=== PATIENT | female | born 1970 | race Caucasian/White ===

== ENCOUNTER → 2017-06-19 | Outpatient (CLI) | payer OTHER ==
[~2017-06-19] MED LIST: ALEVE220 MG PO; CELEBREX 200 M200 M1 PO; ESTROGEN CREAM; HYDROCODONE-AP1 EAC6 PO; IBUPROFEN 200200 M1 PO; IMITREX 25 MG T25 M1 PO; LAMICTAL100 MG PO; ONDANSETRON HCL4 M2 PO; SEROQUEL 25 MG25 M1 PO; XANAX 0.25 MG0.25 MG PO
--- NOTE | 2017-06-21 08:15 | PAINCON ---
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 She has done well with occasional epidural injections, last injection was greater than 4 months ago. I think she has had 3 injections total of 2017. She is seen for the first time in 2018 today. She notes last injection has helped with back and right leg pain. Today, she is standing as a position of comfort. She notes sitting causes significant exacerbation of right sciatic type pain. PHYSICAL EXAMINATION: Shows 5 feet 4 inches, 120 pounds female, BMI is 20 kilograms per meter squared. Blood pressure 120/78, Pulse=50 respirations 16. Modestly antalgic gait. Grossly positive straight leg raise on the right with slight decreased right hip flexion and lower plantar flexion strength. Reviewed diagnostic study, fairly dated MRI from 2011. The patient denies myelopathic symptoms, bowel or bladder continence changes. ASSESSMENT: Symptomatic lumbar radiculopathy, clinical exam and history. RECOMMENDATIONS: 1. Renew hydrocodone 5/325, dispense 60 tablets. We will renew Zofran ODT, which the patient uses in conjunction with sumatriptan 25 mg for her headaches. She states these are quite efficacious. She does not require renewal of the sumatriptan. Repeat epidural injection today at L5-S1. If this does not afford adequate relief, we will need to get another MRI of the lumbar spine. Given prior history and current physical exam, I suspect that this should be efficacious. 2. Lumbar epidural injection under fluoroscopy at L5-S1. PROCEDURE NOTE: After both written and informed consent to include risk of spinal cord damage, increased pain, weakness and dural puncture, the patient was taken to the fluoroscopy suite, placed in the prone position. After sterile prep and drape, a skin wheal with lidocaine was raised. A 22-gauge epidural Tuohy needle was inserted in the midline at L5-S1 with good loss to resistance. Negative aspiration for cerebrospinal fluid or blood was noted. Then 1 mL of Omnipaque under biplanar fluoroscopy showed good spread within the epidural space. This was followed with 80 mg of triamcinolone plus 1 mL of 1.5% preservative-free Xylocaine, 0.5 mL Xylocaine [place] [address] PAIN MANAGEMENT CONSULTATION Name: SOHAM GREY Room: [facility] Liriano#: [id number] Admission: 06/19/17 Attend Phys: Urban Renteria Discharge: Date of : 74 Report #: [id number] needle; it was removed. The patient was monitored for an appropriate period of time and discharged in good and stable condition. <ELECTRONICALLY SIGNED> By: Luciano Will DO 06/21/17 0815 0800 [id number] Centerraquel Will DO /nt
== END | disposition home or self-care (01) ==
LOC: M.PC 02:03
DX: M54.16 Radiculopathy, lumbar region (principal); G89.29 Other chronic pain; Z79.891 Long term (current) use of opiate analgesic; Z98.890 Other specified postprocedural states

== ENCOUNTER → 2017-07-10 | Outpatient (CLI) | payer OTHER ==
--- NOTE | 2017-07-11 08:24 | PAINCON ---
[address] [address] PAIN MANAGEMENT CONSULTATION Name: SOHAM GREY Room: [facility] Heri#: [id number] Admission: 07/10/17 Attend Phys: Urban Renteria Discharge: Date of : 74 Report #: [id number] THIS REPORT FOR: //name// CC: Physician staff Rubens Will The patient is a very pleasant 46-year-old female being treated for lumbar radiculopathy, component of SI joint dysfunction. She was given epidural injection at last visit with incremental improvement of baseline pain, still has ongoing pain, low back and right leg. The patient has done well with occasional epidural injections, initially treated in 11/2014. She had a single injection in 2014 and two lumbar epidural injections in 2015. She had a lumbar epidural injection in September, December and 03/2017. She had a single injection on 06/19/2017. While this afforded incremental relief, she still has some ongoing right radicular pain. PHYSICAL EXAMINATION: Shows pleasant 46-year-old female, blood pressure 114/68, pulse 69 and respirations 16. BMI is 21.8 kilograms per meter squared. Rises from chair without using the armrest. Gait is tandem. Lumbar flexion is good. Tenderness over the right low back radiating in L4 pattern on the right side. Modestly positive straight leg raise on the right with resistance to right hip flexion reproducing L4 radicular pain pattern. I reviewed the patient's diagnostic findings including MRI of the lumbar spine dated 05/19/2012, she had had a left-sided broad-based disk at L4-L5 with anterolisthesis at this level. Over time, symptoms have become more right-sided. No new imaging indicated at this point, but we did elect to repeat epidural injection under fluoroscopy today. We will have the patient follow up in 2-3 weeks for reevaluation. If symptoms continue, we will need an MRI at that time. If, however, she has good resolution of symptoms, we will simply see as needed. ASSESSMENT: Symptomatic lumbar radiculopathy. PROCEDURE: Lumbar epidural injection under fluoroscopy. PROCEDURE NOTE: After both written and informed consent to include risk of spinal cord damage, increased pain, weakness and dural puncture, the patient was taken to the fluoroscopy suite, placed in the prone position. After sterile prep and drape, a skin wheal with lidocaine was raised. A 22-gauge epidural Tuohy needle was inserted in the midline at L4-L5 with good loss to resistance. Negative aspiration for cerebrospinal fluid or blood was noted. Then 1 mL of Omnipaque under biplanar fluoroscopy showed good spread within the epidural space. This was followed with 80 mg of triamcinolone plus 1 mL of 1.5% preservative-free Xylocaine, 0.5 mL Xylocaine was [place] [address] PAIN MANAGEMENT CONSULTATION Name: SOHAM GREY Room: [facility] Liriano#: [id number] Admission: 07/10/17 Attend Phys: Urban Renteria Discharge: Date of : 74 Report #: [id number] needle; it was removed. The patient was monitored for an appropriate period of time and discharged in good and stable condition. <ELECTRONICALLY SIGNED> By: Luciano Will DO 07/11/17 0824 1414 [id number] Will DO /nt
== END | disposition home or self-care (01) ==
LOC: M.PC 07-03 01:29
DX: M54.16 Radiculopathy, lumbar region (principal); G89.29 Other chronic pain; M53.3 Sacrococcygeal disorders, not elsewhere classified; Z79.891 Long term (current) use of opiate analgesic

== ENCOUNTER → 2017-09-25 | Outpatient (CLI) | payer OTHER ==
--- NOTE | 2017-09-26 06:52 | PAINCON ---
[address] [address] PAIN MANAGEMENT CONSULTATION Name: SOHAM GREY Room: [facility] Liriano#: [id number] Admission: 09/25/17 Attend Phys: Urban Renteria Discharge: Date of : 74 Report #: [id number] THIS REPORT FOR: //name// CC: Rubens Will DATE OF SERVICE: 09/25/2017 The patient is a very pleasant 47-year-old female being treated for lumbar radiculopathy. She has had epidural injections with dwindling efficacy. Ordered an MRI of the lumbar spine. We reviewed that today. She has ongoing pain, right posterior leg down to the foot. PHYSICAL EXAM: Positive straight leg raise on the right, chronic pain have been on the left side. Reviewed the MRI from 08/05/2017 L4-L5, does note a left paracentral disk with a horizontal tear. Primary pain in the right leg, correlates with L5-S1 broad-based right lateral recess disk traversing the right S1 nerve root. ASSESSMENT: Symptomatic lumbar radiculopathy by clinical exam and history. RECOMMENDATION: Repeat epidural injection under fluoroscopy today, but we will lower the level to L5-S1 on the right. The patient is given contact information for Dr. Dontae Hicks for further evaluation if this does not afford adequate relief. PROCEDURE: Lumbar epidural injection under fluoroscopy. PROCEDURE NOTE: After both written and informed consent to include risk of spinal cord damage, increased pain, weakness and dural puncture, the patient was taken to the fluoroscopy suite, placed in the prone position. After sterile prep and drape, a skin wheal with lidocaine was raised. A 22-gauge epidural Tuohy needle was inserted in the midline at L5-S1 with good loss to resistance. Negative aspiration for cerebrospinal fluid or blood was noted. Then 1 mL of Omnipaque under biplanar fluoroscopy showed good spread within the epidural space. This was followed with 80 mg of triamcinolone plus 1 mL of 1.5% preservative-free Xylocaine, 0.5 mL Xylocaine was then injected to flush the needle; it was removed. The patient was monitored for an appropriate period of time and discharged in good and stable condition. <ELECTRONICALLY SIGNED> By: Luciano Will DO 09/26/17 0652 [id number] Will DO /nt
== END | disposition home or self-care (01) ==
LOC: M.PC 08-14 03:40
DX: M54.16 Radiculopathy, lumbar region (principal); G89.29 Other chronic pain; Z79.891 Long term (current) use of opiate analgesic; Z98.890 Other specified postprocedural states

== ENCOUNTER → 2017-10-30 | Outpatient (CLI) | payer OTHER ==
--- NOTE | 2017-10-31 07:19 | PAINCON ---
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 She has done well with occasional hydrocodone 5/325, zero-two a day. Celebrex 200 mg 1 a day. Last hydrocodone prescription was August 14. Returns to pain clinic today, lumbar radicular symptoms have recurred. I did a lumbar epidural injection, L5-S1, last visit with good incremental improvement in baseline pain, though she still rates baseline pain at 7-9 at VAS at its worst. Last visit, we had reviewed the patient's MRI from 08/05/2017 noting a new right-sided L5-S1 disk herniation (prior left L4-L5 disk had caused her prior left radicular symptoms earlier in the 2014 and 2016. ASSESSMENT: Symptomatic lumbar radiculopathy with a classic right L5 radicular symptoms. The patient has had good incremental relief following the initial injection. RECOMMENDATIONS: Repeat epidural injection under fluoroscopy today. She has seen Dr. Dontae Hicks and nurse, Mana Palafox. They are planning on moving forward with discrete right L5-S1 foraminotomy. If today's injection does not afford adequate relief, I did renew hydrocodone 5/325, dispense 60 tablets, one tablet q. 8 hours as needed for pain. This typically lasts several months. PROCEDURE NOTE PROCEDURE: Lumbar epidural injection under fluoroscopy. DESCRIPTION OF PROCEDURE NOTE: After both written and informed consent to include risk of spinal cord damage, increased pain, weakness and dural puncture, the patient was taken to the fluoroscopy suite, placed in the prone position. After sterile prep and drape, a skin wheal with lidocaine was raised. A 22-gauge epidural Tuohy needle was inserted in the midline at L5-S1 with good loss to resistance. Negative aspiration for cerebrospinal fluid or blood was noted. Then 1 mL of Omnipaque under biplanar fluoroscopy showed good spread within the epidural space. This was followed with 80 mg of triamcinolone plus 1 mL of 1.5% preservative-free Xylocaine, 0.5 mL Xylocaine was then injected to flush the needle; it was removed. The patient was monitored for an appropriate period of time and discharged in good and stable condition. <ELECTRONICALLY SIGNED> By: Luciano Will DO 10/31/17 0719 1448 [id number] Will DO /nt
== END | disposition home or self-care (01) ==
LOC: M.PC 03:38
DX: M54.16 Radiculopathy, lumbar region (principal); Z79.899 Other long term (current) drug therapy; Z98.890 Other specified postprocedural states

== ENCOUNTER → 2018-02-06 | Outpatient (CLI) | payer OTHER ==
--- NOTE | 2018-02-12 16:41 | PAINCON ---
[address] [address] PAIN MANAGEMENT CONSULTATION Name: SOHAM GREY Room: [facility] Liriano#: [id number] Admission: 02/06/18 Attend Phys: Arvind Cross MD Discharge: Date of : 74 Report #: [id number] THIS REPORT FOR: //name// CC: Arvind Jha DATE OF SERVICE: 02/06/2018 CHIEF COMPLAINT: Pain in the low back area with pain down into my leg. I am thinking about undergoing surgery. FOLLOWUP HISTORY: The patient is a 47-year-old female who has been seen and followed in the pain clinic because of chronic pain by Dr. Luciano Will. She has undergone conservative treatment as well as epidural steroid injections in her low back area. She states that she has been having some pain and discomfort in her low back with pain that is radiating down into her buttocks and down into the right leg in the L5-S1 distribution. She recently had an injection at [facility] with Dr. Oscar Huertas. Feels that it was helpful, but continues to have some shooting, throbbing pain in the right buttocks and down into the calf. Continues to use Celebrex, hydrocodone and Zofran. Feels that her pain is about 50% better. She is scheduled with Dr. Ross to undergo a diskectomy using a minimal invasive technique. She has returned today for renewal of her medications, which include Celebrex and hydrocodone. She is a little nervous about the procedure. The patient states that she was walking to the door. Fell against the door and hit the left side of her face on the door jam. Since that time, she has had some numbness in her neck as well as in the posterior pharynx area. Sometimes eating certain foods cause some discomfort. She also had some discomfort in the temporal area. She was told that she has had a concussion. She continues to have some problems with the left side of her head and feels that there are some problems with swallowing. The perception is that her throat is about half the size it was prior to this incident. She is somewhat concerned about that. She would like to consider seeing a neurologist. She has seen an ENT doctor and was told that they did not see any obvious pathology. ALLERGIES: No known drug allergies. CURRENT MEDICATIONS: Xanax 0.25 mg, hydrocodone 5/325 one p.o. b.i.d. as needed, Lamictal 100 mg, ondansetron 4 mg b.i.d., Seroquel 25 mg, Imitrex 25 mg, estrogen cream and Celebrex. PAIN CLINIC ASSESSMENT: 1. The patient is not being treated for osteoarthritis. Did have a labrum tear in her right hip, which is improved. The patient is a runner. 2. Vital signs: Blood pressure 137/73, heart rate 86, respiratory rate 16, [facility] [address] [place] [address] PAIN MANAGEMENT CONSULTATION Name: SOHAM GREY Room: [facility] Heri#: [id number] Admission: 02/06/18 Attend Phys: Arvind Cross MD Discharge: Date of : 74 Report #: [id number] room air saturation 97% and temperature 98.2. Height 5 foot 3 inches, weight 121 pounds, BMI is 21. Pain intensity 8/10. 3. Fall risk. The patient has not fallen since her last pain clinic visit. 4. Blood thinner. The patient is on a blood thinning medication. 5. Hypertension. The patient has not been treated for hypertension. 6. Opioid therapy greater than 6 weeks. The patient [facility]. 7. Risk assessment tool, low for use of opioid medication. 8. Functional assessment tool. 9. Recreational drug use. The patient denies use of recreational drugs. 10. Tobacco: The patient denies use of tobacco. 11. Denies use of alcoholic beverages. PHYSICAL EXAMINATION: GENERAL: The patient is a well-developed, well-nourished white female. Appears her stated age. She is alert and oriented x 3. Affect is appropriate. Speech is fluent. HEENT: Normocephalic, atraumatic. Extraocular muscles intact. Sclerae nonicteric. Mucous membranes are moist. NECK: Without JVD or bruits. HEART: Regular rate. ABDOMEN: Nontender. LUNGS: Clear to auscultation without rhonchi or rales. MUSCULOSKELETAL: Without significant scoliosis, kyphosis or lordosis. The patient has pain and discomfort which is radiating down into the right L5-S1 distribution. IMPRESSION: 1. L5-S1 radicular pain now considering minimal invasive surgery. 2. Perception of difficulty swallowing involving the left side of her face after she fell into a doorway. The patient would like to see neurologist. We have spoken with her about the possibility of seen Dr. Zazueta. We would like to thank you for letting us participate in her care. We would like to thank you for letting us participate in her care. We hope she continues to improve. <ELECTRONICALLY SIGNED> By: Arvind Cross MD 02/12/18 1641 [id number]. MD jordin Cain
== END ==
LOC: M.PC 01-23 09:00
DX: M54.5 Low back pain (principal); M25.551 Pain in right hip